=== PATIENT | male | born 1975 | race Caucasian/White ===

== ENCOUNTER → 2020-12-18 14:57 | Outpatient (CLI) | payer BC, SELFPAY ==
--- NOTE | 2020-12-18 15:02 | DI.RAD.S_ITS ---
PROCEDURE: XR KNEE RT 3V INDICATIONS: right knee pain TECHNIQUE: 3 views of the knee were acquired. COMPARISON: None. FINDINGS: Bones: No fractures or dislocations. No suspicious bony lesions. Mild osteoarthritic changes. Soft tissues: No joint effusion. No suspicious soft tissue calcifications. IMPRESSION: Mild osteoarthritis. Dictated by: Vik Lantigua M.D. on 12/18/2020 at 15:50 Approved by: Vik Lantigua M.D. on 12/18/2020 at 15:53
[2020-12-18 17:30] LABS: HEMOLYSIS < 15 (0-50)
[2020-12-18 17:31] LABS: Alanine Aminotransferase 90 IU/L (<50); Albumin 4.8 g/dL (3.5-5.0); Albumin Globulin Ratio 1.6 (1.0-2.8); Alkaline Phosphatase 74 U/L (38-126); Aspartate Aminotransferase 50 IU/L (17-59); BUN Creatinine Ratio 19.8 (6-22); Bilirubin Total 2.5 mg/dL (0.2-1.3); Blood Urea Nitrogen 18 mg/dL (9-20); Calcium 10.1 mg/dL (8.4-10.2); Carbon Dioxide 27 mmol/L (22-32); Chloride 102 mmol/L (98-107); Estimated Glomerular Filt Rate > 60.0 mL/min (>60); Glucose 100 mg/dL (70-100); Sodium 138 mmol/L (137-145); Total Protein 7.8 g/dL (6.3-8.2)
== END ==
PROVIDERS: PCP Family Medicine; Referring Provider Family Medicine; Visit Provider Family Medicine
DX: I10 Essential (primary) hypertension (principal); M25.561 Pain in right knee
CPT/HCPCS: 36415; 73562; 80053

== ENCOUNTER → 2021-01-30 07:54 | Outpatient (CLI) | payer BC, SELFPAY ==
[2021-01-30 08:33] LABS: Add Manual Diff / Slide Review NO; Basophils Absolute Auto 100 /uL (0-100); Eosinophils Absolute Auto 200 /uL (0-450); Eosinophils Percent Auto 4.1 % (2-4); Hematocrit 43.1 % (41-53); Hemoglobin 14.8 g/dL (13.5-17.5); Lymphocytes Absolute Auto 1500 /uL (1100-4500); Lymphocytes Percent Auto 38.7 % (25-40); Mean Corpuscular HGB Conc 34.4 % (30-36); Mean Corpuscular Hemoglobin 30.2 PG (26-34); Mean Corpuscular Volume 87.8 fL (80-100); Monocytes Absolute Auto 400 /uL (0-900); Monocytes Percent Auto 9.1 % (3-14); Neutrophils Absolute Auto 1800 /uL (1500-7000); Neutrophils Percent Auto 46.1 % (50-75); Platelet Count 261 X10^3/uL (150-400); Red Blood Cell Count 4.91 X10^6/uL (4.5-5.9); Red Cell Distribution Width 12.4 % (11.6-14.8); White Blood Cell Count 3.9 X10^3/uL (4.5-11.0)
[2021-01-30 09:03] LABS: Alanine Aminotransferase 34 IU/L (<50); Albumin 4.1 g/dL (3.5-5.0); Albumin Globulin Ratio 1.6 (1.0-2.8); Alkaline Phosphatase 75 U/L (38-126); Aspartate Aminotransferase 29 IU/L (17-59); BUN Creatinine Ratio 15.7 (6-22); Bilirubin Total 1.6 mg/dL (0.2-1.3); Blood Urea Nitrogen 14 mg/dL (9-20); Calcium 9.8 mg/dL (8.4-10.2); Carbon Dioxide 29 mmol/L (22-32); Chloride 103 mmol/L (98-107); Cholesterol 190 mg/dL (140-199); Estimated Glomerular Filt Rate > 60.0 mL/min (>60); Globulin 2.5 g/dL (1.7-4.1); Glucose 102 mg/dL (70-100); HDL Cholesterol 53 mg/dL (40-60); HEMOLYSIS < 15 (0-50); LDL Cholesterol Calculated 125 mg/dL (<100); Potassium 4.5 mmol/L (3.4-5.1); Sodium 139 mmol/L (137-145); Total Protein 6.6 g/dL (6.3-8.2); Triglycerides 59 mg/dL (35-150)
[2021-01-30 09:36] LABS: Thyroid Stimulating Hormone 2.22 uIU/mL (0.47-4.68)
== END ==
PROVIDERS: Family Provider Family Medicine; PCP Family Medicine; Referring Provider Family Medicine; Visit Provider Family Medicine
DX: R17 Unspecified jaundice (principal); I10 Essential (primary) hypertension; R79.89 Other specified abnormal findings of blood chemistry; E03.9 Hypothyroidism, unspecified
CPT/HCPCS: 36415; 80053; 80061; 84443; 85025

== ENCOUNTER 2021-02-11 15:15 | Outpatient (RCR) | payer BC, SELFPAY ==
--- NOTE | 2021-01-17 16:53 | PT.OIE ---
Current Diagnoses Other chronic pain (01/17/21) Pain in right knee (01/17/21) Past Medical History (Last Updated 01/14/21 @ 13:00 by Perry Aranda DO) Chicken pox (~1983) Elevated bilirubin Hypertension (~2012) Right knee pain Wears contact lenses Past Surgical History (Last Updated 12/23/20 @ 21:09 by Rebecca Mix) Anesthesia S/P arthroscopic surgery of left knee (~1990) Visit Care Team Role Provider Type Perry Aranda DO Attending Provider Physician Family Provider Primary Care Provider Referring Provider Specialty: Family Practice Address: [address] [place] [address] Email: [email or web address] Physical Therapy Initial Evaluation PT-OP-A Visit Information Start: 01/17/21 16:24 Freq: Status: Active Protocol: Document 01/17/21 16:25 HH (Rec: 01/17/21 16:53 [email or web address]) Out-Patient Physical Therapy Visit Information Visit Information Visit Type Initial Evaluation Visit Start Time 13:00 Visit Stop Time 13:45 Total Visit Minutes 45 Visit Number 1/60 Number of MATERIALS RESEARCH ENGINEER Visits 0 Evaluation Information Evaluation Date 01/17/21 PT-OP-B Current Condition Start: 01/17/21 16:24 Freq: Status: Active Protocol: Document 01/17/21 16:25 HH (Rec: 01/17/21 16:53 [email or web address]) Current Condition History of Current Condition Onset Date 8 months ago Current Complaints R anterior medial knee pain, difficulty in running History of Current Condition Rich is a 45yo active male here for his R knee pain. His pain locates at anterior-medially at R knee and it started around 8 months ago during running with no known injury. Stair climbing and going down hill tend to get worse and he took a few weeks off from running and it did get better. However, this cycle happened 3 different times since then and he is able to jog on treadmill but not concrete surface. He is still doing his weightlifting at home 3x/week (deadlift and upper body workout). Pt used to run 3-5 miles 3x/ week and would like to get back to it. Prior Treatments and Tests x-ray R knee 12/18/20 IMPRESSION: Mild osteoarthritis. Treatment Goals Patient/Caregiver Goals 1. to be able to run 3-5 miles 3x/week without knee pain PT-OP-C Subjective Start: 01/17/21 16:24 Freq: Status: Active Protocol: Document 01/17/21 16:25 HH (Rec: 01/17/21 16:53 [email or web address]) Patient Questionnaires Lower Extremity Functional Scale LEFS Score 65 LEFS Impairment 1 to 19% Impaired (Score 63-79 ) OP-PT Pain Assessment Location R knee Pain Location Details anteriormedial compartment Intensity 6 Scale Used Numeric (0 - 10) Description Aching Frequency Frequent Pain Aggravating Factors Activity,Exercise,Stair Climbing Other Pain Aggravating Factors running Pain Alleviating Factors Inactivity PT-OP-D Balance Start: 01/17/21 16:24 Freq: Status: Active Protocol: Document 01/17/21 16:25 HH (Rec: 01/17/21 16:53 [email or web address]) Balance Tests Single Limb Standing Single Limb- Right >60 significant poor lateral stability, UE up Single Limb- Left >60 PT-OP-E Functional Tests Start: 01/17/21 16:24 Freq: Status: Active Protocol: Document 01/17/21 16:25 HH (Rec: 01/17/21 16:53 [email or web address]) Functional Tests Star Excursion Balance Test Score Y test on LLE= 21;25;34 on RLE = 23;19:29 Single Leg Squat Test Comment RLE= from 24inch table, LLE from 22 inch table PT-OP-F Manual Assessment Start: 01/17/21 16:24 Freq: Status: Active Protocol: Document 01/17/21 16:25 HH (Rec: 01/17/21 16:53 [email or web address]) Manual Assessments Soft Tissue Assessment Soft Tissue Mobility Assessment hypertonicity at R piriformis and gluteal eliana PT-OP-G Mobility & Gait Start: 01/17/21 16:24 Freq: Status: Active Protocol: Document 01/17/21 16:25 HH (Rec: 01/17/21 16:53 [email or web address]) OP Gait Assessment Comments Gait Comments WFL PT-OP-K Range of Motion Start: 01/17/21 16:24 Freq: Status: Active Protocol: Document 01/17/21 16:25 HH (Rec: 01/17/21 16:53 [email or web address]) Hip Goniometric Range of Motion Hip Right Active Testing Position Prone Internal Rotation 49 External Rotation 36 Left Active Testing Position Prone Internal Rotation 40 External Rotation 45 Hip ROM Limitations Hip ROM Limitations Soft Tissue Tightness Knee Goniometric Range of Motion Knee Right Knee ROM WFL Yes Flexion Active (degrees) 140 Extension Active (degrees) 0 Left Knee ROM WFL Yes Flexion Active (degrees) 140 Extension Active (degrees) 0 PT-OP-L Special Tests Start: 01/17/21 16:24 Freq: Status: Active Protocol: Document 01/17/21 16:25 HH (Rec: 01/17/21 16:53 [email or web address]) Special Tests Knee Special Tests Varus- 0 Degrees Test Results -ve B Valgus- 25 Degrees Test Results -ve B Varus- 25 Degrees Test Results -ve B Valgus- 0 Degrees Test Results -ve B Anterior Draw Test Results -ve B Apley's Compression Test Results -ve B Apprehension Test Test Results +ve R Comments slight discomfort with lateral glide of patella Momo's Sign Test Results +VE R Toyin Test Test Results -ve PT-OP-M Strength Start: 01/17/21 16:24 Freq: Status: Active Protocol: Document 01/17/21 16:25 HH (Rec: 01/17/21 16:53 [email or web address]) Hip Strength Hip Manual Muscle Testing Right Flexion (L2) 4 Good Extension (S1) 4+ Good+ Abduction 4 Good External Rotation 4 Good Internal Rotation 4+ Good+ Left Flexion (L2) 5 Normal Extension (S1) 5 Normal Abduction 5 Normal Adduction 5 Normal External Rotation 4+ Good+ Internal Rotation 4+ Good+ Knee Strength Knee Manual Muscle Testing Right Flexion (S2) 5 Normal Extension (L3) 5 Normal Left Flexion (S2) 5 Normal Extension (L3) 5 Normal PT-OP-Q Treatments Start: 01/17/21 16:24 Freq: Status: Active Protocol: Document 01/17/21 16:25 (Rec: 01/17/21 16:53 [email or web address]) Therapeutic Exercises Supine Exercises figure 4 stretch Side right Reps/Minutes 10 sec hold x5 Comments for HEP piriformis stretch Side right Reps/Minutes 10 sec hold x5 Comments for HEP PT-OP-T Assessment and Plan Start: 01/17/21 16:24 Freq: Status: Active Protocol: Document 01/17/21 16:25 (Rec: 01/17/21 16:53 [email or web address]) Physical Therapy Assessment Rehab Potential Rehabilitation Potential Excellent Evaluation Complexity Number of Personal Factors/Comorbidities 0 Number of Body Systems Impaired 1-2 Clinical Presentation at Evaluation Stable Impairments Impairments Activity Tolerance,Balance, Functional Activities, Functional Mobility,Gait,Pain, Posture,ROM,Soft Tissue Mobility,Strength Goals single leg strength Impairment limited R single leg strength Short Term Goal (STG) pt will be able to stand on RLE without use of UEs to balance for 60 seconds STG Duration 4 weeks Retirement Goal (LTG) pt will show improve single leg balance and strength to be able to complete 5 single leg squat from a 22 table, which allows him to have good eccentric control during stance phase while running LTG Duration 8 weeks hip ROM Impairment limited R hip ER Short Term Goal (STG) pt will show improved R hip ER by 10 degrees to prevent knee valgus during running and single leg squat STG Duration 6 weeks running Impairment pt is unable to run on concrete at this point Short Term Goal (STG) pt will be able to run on concrete road 1-2 miles 3x per week without increase in discomfort STG Duration 4 weeks Bi Solutions Architect Goal (LTG) pt will be able to run on concrete road 3-5 miles 3x per week without increase in discomfort LTG Duration 8 weeks Assessment Summary Assessment Rich is an active 45yo male here for his R knee pain during running. Upon assessment, pt presents with PFPS at anterior medial part of R knee. Although there's mild OA showed on X-ray, pt does not have stiffness/ ROM limitation. However, pt does have limited R hip ER and poor R single leg balance and strength which affects his running mechanics during stance phase. pt tends to have excessive R knee valgus which possibly places mechanical stress at medial knee joint. Pt will benefit from skilled therapy to improve his R hip ER and R single leg stability and strength in order for him to have better landing control eccentrically during runnning . Physical Therapy Plan Frequency and Duration Frequency of Treatment 1x/Week Duration of Treatment 8 weeks Plan of Care Start Date 01/17/21 Plan of Care End Date 03/18/21 Therapeutic Interventions Therapeutic Interventions Aquatic Therapy,Balance Training,Gait Training,Home Exercise Program,Joint Mobilizations,Manual Therapy, Neuromuscular Re-education, Patient/Caregiver Education, Self-Care/Home Management,Soft Tissue Mobilization,Taping, Therapeutic Activities, Therapeutic Exercises Modalities Biofeedback,Cold Pack/Ice Massage,Electric Stimulation, Hot Packs,Infrared Therapy, Iontophoresis,Ultrasound Next Visit Focus/Plan Next Note Type Treatment Note Next Visit Plan running analysis R hip ER hip stabilizer strnegthening hip abductors strengthening SL balance leg press
--- NOTE | 2021-01-17 16:53 | PT.OPPOC ---
Physical, Occupational & Speech Therapy At [facility] Current Diagnoses Other chronic pain (01/17/21) Pain in right knee (01/17/21) Visit Care Team Role Provider Type Perry Aranda DO Attending Provider Physician Family Provider Primary Care Provider Referring Provider Specialty: Family Practice Address: [address] [place] [address], [facility] Email: [email or web address] Plan Of Care PT-OP-T Assessment and Plan Start: 01/17/21 16:24 Freq: Status: Active Protocol: Document 01/17/21 16:25 HH (Rec: 01/17/21 16:53 HH [email or web address]) Physical Therapy Assessment Rehab Potential Rehabilitation Potential Excellent Evaluation Complexity Number of Personal Factors/Comorbidities 0 Number of Body Systems Impaired 1-2 Clinical Presentation at Evaluation Stable Impairments Impairments Activity Tolerance,Balance, Functional Activities, Functional Mobility,Gait,Pain, Posture,ROM,Soft Tissue Mobility,Strength Goals single leg strength Impairment limited R single leg strength Short Term Goal (STG) pt will be able to stand on RLE without use of UEs to balance for 60 seconds STG Duration 4 weeks Wide Load Escort Goal (LTG) pt will show improve single leg balance and strength to be able to complete 5 single leg squat from a 22 table, which allows him to have good eccentric control during stance phase while running LTG Duration 8 weeks hip ROM Impairment limited R hip ER Short Term Goal (STG) pt will show improved R hip ER by 10 degrees to prevent knee valgus during running and single leg squat STG Duration 6 weeks running Impairment pt is unable to run on concrete at this point Short Term Goal (STG) pt will be able to run on concrete road 1-2 miles 3x per week without increase in discomfort STG Duration 4 weeks Wide Load Escort Goal (LTG) pt will be able to run on concrete road 3-5 miles 3x per week without increase in discomfort LTG Duration 8 weeks Assessment Summary Assessment Rich is an active 45yo male here for his R knee pain during running. Upon assessment, pt presents with PFPS at anterior medial part of R knee. Although there's mild OA showed on X-ray, pt does not have stiffness/ ROM limitation. However, pt does have limited R hip ER and poor R single leg balance and strength which affects his running mechanics during stance phase. pt tends to have excessive R knee valgus which possibly places mechanical stress at medial knee joint. Pt will benefit from skilled therapy to improve his R hip ER and R single leg stability and strength in order for him to have better landing control eccentrically during runnning . Physical Therapy Plan Frequency and Duration Frequency of Treatment 1x/Week Duration of Treatment 8 weeks Plan of Care Start Date 01/17/21 Plan of Care End Date 03/18/21 Therapeutic Interventions Therapeutic Interventions Aquatic Therapy,Balance Training,Gait Training,Home Exercise Program,Joint Mobilizations,Manual Therapy, Neuromuscular Re-education, Patient/Caregiver Education, Self-Care/Home Management,Soft Tissue Mobilization,Taping, Therapeutic Activities, Therapeutic Exercises Modalities Biofeedback,Cold Pack/Ice Massage,Electric Stimulation, Hot Packs,Infrared Therapy, Iontophoresis,Ultrasound Next Visit Focus/Plan Next Note Type Treatment Note Next Visit Plan running analysis R hip ER hip stabilizer strnegthening hip abductors strengthening SL balance leg press Plan of Care Dates Plan of Care Start Date 01/17/21 Plan of Care End Date 03/18/21 Electronically Signed by: Kendrick Mosqueda PT 01/17/21 [id number] Please Sign and Return: I have reviewed this Plan of Care and certify that the skilled therapy services above are required to meet the patient?s needs. Physician Signature Date Printed Name and Credentials Clinical Instructor Signature Printed Name and Credentials
--- NOTE | 2021-01-24 16:33 | PT.OTN ---
Current Diagnoses Other chronic pain (01/24/21) Pain in right knee (01/24/21) Physical Therapy Treatment Note PT-OP-A Visit Information Start: 01/17/21 16:24 Freq: Status: Active Protocol: Document 01/24/21 14:28 HH (Rec: 01/24/21 16:33 [id number]) Out-Patient Physical Therapy Visit Information Visit Information Visit Type Treatment Note Visit Start Time 14:30 Visit Stop Time 15:15 Total Visit Minutes 45 Visit Number 2/60 Number of CEMETERY WORKER Visits 0 PT-OP-B Current Condition Start: 01/17/21 16:24 Freq: Status: Active Protocol: Document 01/17/21 16:25 HH (Rec: 01/17/21 16:53 HH [email or web address]) Current Condition History of Current Condition Onset Date 8 months ago Current Complaints R anterior medial knee pain, difficulty in running History of Current Condition Rich is a 45yo active male here for his R knee pain. His pain locates at anterior-medially at R knee and it started around 8 months ago during running with no known injury. Stair climbing and going down hill tend to get worse and he took a few weeks off from running and it did get better. However, this cycle happened 3 different times since then and he is able to jog on treadmill but not concrete surface. He is still doing his weightlifting at home 3x/week (deadlift and upper body workout). Pt used to run 3-5 miles 3x/ week and would like to get back to it. Prior Treatments and Tests x-ray R knee 12/18/20 IMPRESSION: Mild osteoarthritis. Treatment Goals Patient/Caregiver Goals 1. to be able to run 3-5 miles 3x/week without knee pain PT-OP-C Subjective Start: 01/17/21 16:24 Freq: Status: Active Protocol: Document 01/24/21 14:28 HH (Rec: 01/24/21 16:33 [id number]) OP-PT Subjective Patient Comments Patient Comments Raina been doing my stretches PT-OP-D Balance Start: 01/17/21 16:24 Freq: Status: Active Protocol: Document 01/17/21 16:25 HH (Rec: 01/17/21 16:53 HH [email or web address]) Balance Tests Single Limb Standing Single Limb- Right >60 significant poor lateral stability, UE up Single Limb- Left >60 PT-OP-E Functional Tests Start: 01/17/21 16:24 Freq: Status: Active Protocol: Document 01/17/21 16:25 HH (Rec: 01/17/21 16:53 [email or web address]) Functional Tests Star Excursion Balance Test Score Y test on LLE= 21;25;34 on RLE = 23;19:29 Single Leg Squat Test Comment RLE= from 24inch table, LLE from 22 inch table PT-OP-F Manual Assessment Start: 01/17/21 16:24 Freq: Status: Active Protocol: Document 01/17/21 16:25 HH (Rec: 01/17/21 16:53 [email or web address]) Manual Assessments Soft Tissue Assessment Soft Tissue Mobility Assessment hypertonicity at R piriformis and gluteal eliana PT-OP-G Mobility & Gait Start: 01/17/21 16:24 Freq: Status: Active Protocol: Document 01/17/21 16:25 HH (Rec: 01/17/21 16:53 [email or web address]) OP Gait Assessment Comments Gait Comments WFL PT-OP-K Range of Motion Start: 01/17/21 16:24 Freq: Status: Active Protocol: Document 01/17/21 16:25 HH (Rec: 01/17/21 16:53 [email or web address]) Hip Goniometric Range of Motion Hip Right Active Testing Position Prone Internal Rotation 49 External Rotation 36 Left Active Testing Position Prone Internal Rotation 40 External Rotation 45 Hip ROM Limitations Hip ROM Limitations Soft Tissue Tightness Knee Goniometric Range of Motion Knee Right Knee ROM WFL Yes Flexion Active (degrees) 140 Extension Active (degrees) 0 Left Knee ROM WFL Yes Flexion Active (degrees) 140 Extension Active (degrees) 0 PT-OP-L Special Tests Start: 01/17/21 16:24 Freq: Status: Active Protocol: Document 01/17/21 16:25 HH (Rec: 01/17/21 16:53 [email or web address]) Special Tests Knee Special Tests Varus- 0 Degrees Test Results -ve B Valgus- 25 Degrees Test Results -ve B Varus- 25 Degrees Test Results -ve B Valgus- 0 Degrees Test Results -ve B Anterior Draw Test Results -ve B Apley's Compression Test Results -ve B Apprehension Test Test Results +ve R Comments slight discomfort with lateral glide of patella Momo's Sign Test Results +VE R Toyin Test Test Results -ve PT-OP-M Strength Start: 01/17/21 16:24 Freq: Status: Active Protocol: Document 01/17/21 16:25 HH (Rec: 01/17/21 16:53 HH [email or web address]) Hip Strength Hip Manual Muscle Testing Right Flexion (L2) 4 Good Extension (S1) 4+ Good+ Abduction 4 Good External Rotation 4 Good Internal Rotation 4+ Good+ Left Flexion (L2) 5 Normal Extension (S1) 5 Normal Abduction 5 Normal Adduction 5 Normal External Rotation 4+ Good+ Internal Rotation 4+ Good+ Knee Strength Knee Manual Muscle Testing Right Flexion (S2) 5 Normal Extension (L3) 5 Normal Left Flexion (S2) 5 Normal Extension (L3) 5 Normal PT-OP-Q Treatments Start: 01/17/21 16:24 Freq: Status: Active Protocol: Document 01/24/21 14:28 HH (Rec: 01/24/21 16:33 [id number]) Cardio Equipment Treadmill Duration (Minutes) 5 Speed 5.0 Other pre session, slight discomfort at knee, post session no discomfort noted. Therapeutic Exercises Supine Exercises bridging Side bilateral Equipment Used red band on knees Reps/Minutes 10 x3 Comments cues on PPT figure 4 stretch Side right Reps/Minutes 10 sec hold x5 Comments for HEP piriformis stretch Side right Reps/Minutes 10 sec hold x5 Comments for HEP Sidelying Exercises clamshell Side bilateral Reps/Minutes 8 x2 Comments for HEP Standing Exercises SLS Standing Exercise Name blue foam Side bilateral Reps/Minutes 20 x 6 monster walk Equipment Used red band Reps/Minutes 20 ft x6 Manual Therapy Treatment Soft Tissue Mobilization hip adductors Body Location R Mobilization Type Myofascial Release,Sustained Pressure,Trigger Point Release Intensity/Depth Moderate Body Position Supine Comments hypertonicity noted. piriformis Body Location R Mobilization Type Myofascial Release,Sustained Pressure,Trigger Point Release Intensity/Depth Moderate Body Position Prone PT-OP-T Assessment and Plan Start: 01/17/21 16:24 Freq: Status: Active Protocol: Document 01/24/21 14:28 HH (Rec: 01/24/21 16:33 [id number]) Physical Therapy Assessment Goals single leg strength Impairment limited R single leg strength Short Term Goal (STG) pt will be able to stand on RLE without use of UEs to balance for 60 seconds STG Duration 4 weeks Long-Term Goal (LTG) pt will show improve single leg balance and strength to be able to complete 5 single leg squat from a 22 table, which allows him to have good eccentric control during stance phase while running LTG Duration 8 weeks hip ROM Impairment limited R hip ER Short Term Goal (STG) pt will show improved R hip ER by 10 degrees to prevent knee valgus during running and single leg squat STG Duration 6 weeks running Impairment pt is unable to run on concrete at this point Short Term Goal (STG) pt will be able to run on concrete road 1-2 miles 3x per week without increase in discomfort STG Duration 4 weeks Long-Term Goal (LTG) pt will be able to run on concrete road 3-5 miles 3x per week without increase in discomfort LTG Duration 8 weeks Assessment Summary Assessment Running analysis completed today and pt does not show any noticeable deficits. However, pt did report slight anterior medial knee pain while running but no symptoms after manual therapy, hip stabilization ex and single leg balance activities. Will continue monitor his progress. Physical Therapy Plan Frequency and Duration Frequency of Treatment 1x/Week Duration of Treatment 8 weeks Plan of Care Start Date 01/17/21 Plan of Care End Date 03/18/21 Therapeutic Interventions Therapeutic Interventions Aquatic Therapy,Balance Training,Gait Training,Home Exercise Program,Joint Mobilizations,Manual Therapy, Neuromuscular Re-education, Patient/Caregiver Education, Self-Care/Home Management,Soft Tissue Mobilization,Taping, Therapeutic Activities, Therapeutic Exercises Modalities Biofeedback,Cold Pack/Ice Massage,Electric Stimulation, Hot Packs,Infrared Therapy, Iontophoresis,Ultrasound Next Visit Focus/Plan Next Note Type Treatment Note Next Visit Plan running analysis R hip ER hip stabilizer strnegthening hip abductors strengthening SL balance leg press
--- NOTE | 2021-01-28 15:17 | PT.OTN ---
Current Diagnoses Other chronic pain (01/28/21) Pain in right knee (01/28/21) Physical Therapy Treatment Note PT-OP-A Visit Information Start: 01/17/21 16:24 Freq: Status: Active Protocol: Document 01/28/21 14:32 HH (Rec: 01/28/21 15:17 [id number]) Out-Patient Physical Therapy Visit Information Visit Information Visit Type Treatment Note Visit Start Time 14:33 Visit Stop Time 15:15 Total Visit Minutes 43 Visit Number 3/60 Number of MANAGER HEMATOLOGY Visits 0 PT-OP-B Current Condition Start: 01/17/21 16:24 Freq: Status: Active Protocol: Document 01/17/21 16:25 HH (Rec: 01/17/21 16:53 HH [email or web address]) Current Condition History of Current Condition Onset Date 8 months ago Current Complaints R anterior medial knee pain, difficulty in running History of Current Condition Rich is a 45yo active male here for his R knee pain. His pain locates at anterior-medially at R knee and it started around 8 months ago during running with no known injury. Stair climbing and going down hill tend to get worse and he took a few weeks off from running and it did get better. However, this cycle happened 3 different times since then and he is able to jog on treadmill but not concrete surface. He is still doing his weightlifting at home 3x/week (deadlift and upper body workout). Pt used to run 3-5 miles 3x/ week and would like to get back to it. Prior Treatments and Tests x-ray R knee 12/18/20 IMPRESSION: Mild osteoarthritis. Treatment Goals Patient/Caregiver Goals 1. to be able to run 3-5 miles 3x/week without knee pain PT-OP-C Subjective Start: 01/17/21 16:24 Freq: Status: Active Protocol: Document 01/28/21 14:32 HH (Rec: 01/28/21 15:17 HH [id number]) OP-PT Subjective Patient Comments Patient Comments My hip adductors got sore from last time. But my knee is doing pretty good so far. Patient Reported Progress Improving PT-OP-D Balance Start: 01/17/21 16:24 Freq: Status: Active Protocol: Document 01/17/21 16:25 HH (Rec: 01/17/21 16:53 HH [email or web address]) Balance Tests Single Limb Standing Single Limb- Right >60 significant poor lateral stability, UE up Single Limb- Left >60 PT-OP-E Functional Tests Start: 01/17/21 16:24 Freq: Status: Active Protocol: Document 01/17/21 16:25 HH (Rec: 01/17/21 16:53 [email or web address]) Functional Tests Star Excursion Balance Test Score Y test on LLE= 21;25;34 on RLE = 23;19:29 Single Leg Squat Test Comment RLE= from 24inch table, LLE from 22 inch table PT-OP-F Manual Assessment Start: 01/17/21 16:24 Freq: Status: Active Protocol: Document 01/17/21 16:25 HH (Rec: 01/17/21 16:53 [email or web address]) Manual Assessments Soft Tissue Assessment Soft Tissue Mobility Assessment hypertonicity at R piriformis and gluteal eliana PT-OP-G Mobility & Gait Start: 01/17/21 16:24 Freq: Status: Active Protocol: Document 01/17/21 16:25 HH (Rec: 01/17/21 16:53 [email or web address]) OP Gait Assessment Comments Gait Comments WFL PT-OP-K Range of Motion Start: 01/17/21 16:24 Freq: Status: Active Protocol: Document 01/17/21 16:25 HH (Rec: 01/17/21 16:53 [email or web address]) Hip Goniometric Range of Motion Hip Right Active Testing Position Prone Internal Rotation 49 External Rotation 36 Left Active Testing Position Prone Internal Rotation 40 External Rotation 45 Hip ROM Limitations Hip ROM Limitations Soft Tissue Tightness Knee Goniometric Range of Motion Knee Right Knee ROM WFL Yes Flexion Active (degrees) 140 Extension Active (degrees) 0 Left Knee ROM WFL Yes Flexion Active (degrees) 140 Extension Active (degrees) 0 PT-OP-L Special Tests Start: 01/17/21 16:24 Freq: Status: Active Protocol: Document 01/17/21 16:25 HH (Rec: 01/17/21 16:53 [email or web address]) Special Tests Knee Special Tests Varus- 0 Degrees Test Results -ve B Valgus- 25 Degrees Test Results -ve B Varus- 25 Degrees Test Results -ve B Valgus- 0 Degrees Test Results -ve B Anterior Draw Test Results -ve B Apley's Compression Test Results -ve B Apprehension Test Test Results +ve R Comments slight discomfort with lateral glide of patella Momo's Sign Test Results +VE R Toyin Test Test Results -ve PT-OP-M Strength Start: 01/17/21 16:24 Freq: Status: Active Protocol: Document 01/17/21 16:25 HH (Rec: 01/17/21 16:53 HH [email or web address]) Hip Strength Hip Manual Muscle Testing Right Flexion (L2) 4 Good Extension (S1) 4+ Good+ Abduction 4 Good External Rotation 4 Good Internal Rotation 4+ Good+ Left Flexion (L2) 5 Normal Extension (S1) 5 Normal Abduction 5 Normal Adduction 5 Normal External Rotation 4+ Good+ Internal Rotation 4+ Good+ Knee Strength Knee Manual Muscle Testing Right Flexion (S2) 5 Normal Extension (L3) 5 Normal Left Flexion (S2) 5 Normal Extension (L3) 5 Normal PT-OP-Q Treatments Start: 01/17/21 16:24 Freq: Status: Active Protocol: Document 01/28/21 14:32 HH (Rec: 01/28/21 15:17 [id number]) Cardio Equipment Bicycle (Upright) Duration (Minutes) 8 Resistance 5 Treadmill Duration (Minutes) 5 Speed 5.0 Other no dsicomfort noted Therapeutic Exercises Standing Exercises lunges Standing Exercise Name in place Reps/Minutes 8 x 2 runner squat Side bilateral Reps/Minutes 5 mins Comments difficulty standing on RLE but improved after 3 way toe tap Standing Exercise Name cone tap, fwd, lateral, bwk Side bilateral Reps/Minutes 5 mins SLS Standing Exercise Name blue foam, then black foam Side bilateral Reps/Minutes 20 x 6 monster walk Equipment Used red band Reps/Minutes 20 ft x6 Manual Therapy Treatment Soft Tissue Mobilization hip adductors Body Location R Mobilization Type Myofascial Release,Sustained Pressure,Trigger Point Release Intensity/Depth Moderate Body Position Supine Comments hypertonicity noted. piriformis Body Location R Mobilization Type Myofascial Release,Sustained Pressure,Trigger Point Release Intensity/Depth Moderate Body Position Prone PT-OP-T Assessment and Plan Start: 01/17/21 16:24 Freq: Status: Active Protocol: Document 01/28/21 14:32 (Rec: 01/28/21 15:17 [id number]) Physical Therapy Assessment Goals single leg strength Impairment limited R single leg strength Short Term Goal (STG) pt will be able to stand on RLE without use of UEs to balance for 60 seconds STG Duration 4 weeks Drink Mixer Goal (LTG) pt will show improve single leg balance and strength to be able to complete 5 single leg squat from a 22 table, which allows him to have good eccentric control during stance phase while running LTG Duration 8 weeks hip ROM Impairment limited R hip ER Short Term Goal (STG) pt will show improved R hip ER by 10 degrees to prevent knee valgus during running and single leg squat STG Duration 6 weeks running Impairment pt is unable to run on concrete at this point Short Term Goal (STG) pt will be able to run on concrete road 1-2 miles 3x per week without increase in discomfort STG Duration 4 weeks Senior Living Goal (LTG) pt will be able to run on concrete road 3-5 miles 3x per week without increase in discomfort LTG Duration 8 weeks Assessment Summary Assessment Pt shows improved SL balance and strength. This session focused primarily on strengthening ex on single leg stance. No discomfort noted. Will cont progress his ex as isaac. Physical Therapy Plan Frequency and Duration Frequency of Treatment 1x/Week Duration of Treatment 8 weeks Plan of Care Start Date 01/17/21 Plan of Care End Date 03/18/21 Therapeutic Interventions Therapeutic Interventions Aquatic Therapy,Balance Training,Gait Training,Home Exercise Program,Joint Mobilizations,Manual Therapy, Neuromuscular Re-education, Patient/Caregiver Education, Self-Care/Home Management,Soft Tissue Mobilization,Taping, Therapeutic Activities, Therapeutic Exercises Modalities Biofeedback,Cold Pack/Ice Massage,Electric Stimulation, Hot Packs,Infrared Therapy, Iontophoresis,Ultrasound Next Visit Focus/Plan Next Note Type Treatment Note Next Visit Plan running analysis R hip ER hip stabilizer strnegthening hip abductors strengthening SL balance leg press
--- NOTE | 2021-01-31 15:18 | PT.OTN ---
Current Diagnoses Other chronic pain (01/31/21) Pain in right knee (01/31/21) Physical Therapy Treatment Note PT-OP-A Visit Information Start: 01/17/21 16:24 Freq: Status: Active Protocol: Document 01/31/21 14:27 HH (Rec: 01/31/21 15:17 [id number]) Out-Patient Physical Therapy Visit Information Visit Information Visit Type Treatment Note Visit Start Time 14:33 Visit Stop Time 15:18 Total Visit Minutes 45 Visit Number 4/60 Number of CREDIT COLLECTIONS ANALYST Visits 0 PT-OP-B Current Condition Start: 01/17/21 16:24 Freq: Status: Active Protocol: Document 01/17/21 16:25 HH (Rec: 01/17/21 16:53 HH [email or web address]) Current Condition History of Current Condition Onset Date 8 months ago Current Complaints R anterior medial knee pain, difficulty in running History of Current Condition Rich is a 45yo active male here for his R knee pain. His pain locates at anterior-medially at R knee and it started around 8 months ago during running with no known injury. Stair climbing and going down hill tend to get worse and he took a few weeks off from running and it did get better. However, this cycle happened 3 different times since then and he is able to jog on treadmill but not concrete surface. He is still doing his weightlifting at home 3x/week (deadlift and upper body workout). Pt used to run 3-5 miles 3x/ week and would like to get back to it. Prior Treatments and Tests x-ray R knee 12/18/20 IMPRESSION: Mild osteoarthritis. Treatment Goals Patient/Caregiver Goals 1. to be able to run 3-5 miles 3x/week without knee pain PT-OP-C Subjective Start: 01/17/21 16:24 Freq: Status: Active Protocol: Document 01/31/21 14:27 HH (Rec: 01/31/21 15:17 [id number]) OP-PT Subjective Patient Comments Patient Comments My knee got a little sore from last workout session here but it went away the next day . I feel pretty good so far Patient Reported Progress Improving PT-OP-D Balance Start: 01/17/21 16:24 Freq: Status: Active Protocol: Document 01/17/21 16:25 HH (Rec: 01/17/21 16:53 HH [email or web address]) Balance Tests Single Limb Standing Single Limb- Right >60 significant poor lateral stability, UE up Single Limb- Left >60 PT-OP-E Functional Tests Start: 01/17/21 16:24 Freq: Status: Active Protocol: Document 01/17/21 16:25 HH (Rec: 01/17/21 16:53 [email or web address]) Functional Tests Star Excursion Balance Test Score Y test on LLE= 21;25;34 on RLE = 23;19:29 Single Leg Squat Test Comment RLE= from 24inch table, LLE from 22 inch table PT-OP-F Manual Assessment Start: 01/17/21 16:24 Freq: Status: Active Protocol: Document 01/17/21 16:25 HH (Rec: 01/17/21 16:53 [email or web address]) Manual Assessments Soft Tissue Assessment Soft Tissue Mobility Assessment hypertonicity at R piriformis and gluteal eliana PT-OP-G Mobility & Gait Start: 01/17/21 16:24 Freq: Status: Active Protocol: Document 01/17/21 16:25 HH (Rec: 01/17/21 16:53 [email or web address]) OP Gait Assessment Comments Gait Comments WFL PT-OP-K Range of Motion Start: 01/17/21 16:24 Freq: Status: Active Protocol: Document 01/17/21 16:25 HH (Rec: 01/17/21 16:53 [email or web address]) Hip Goniometric Range of Motion Hip Right Active Testing Position Prone Internal Rotation 49 External Rotation 36 Left Active Testing Position Prone Internal Rotation 40 External Rotation 45 Hip ROM Limitations Hip ROM Limitations Soft Tissue Tightness Knee Goniometric Range of Motion Knee Right Knee ROM WFL Yes Flexion Active (degrees) 140 Extension Active (degrees) 0 Left Knee ROM WFL Yes Flexion Active (degrees) 140 Extension Active (degrees) 0 PT-OP-L Special Tests Start: 01/17/21 16:24 Freq: Status: Active Protocol: Document 01/17/21 16:25 HH (Rec: 01/17/21 16:53 [email or web address]) Special Tests Knee Special Tests Varus- 0 Degrees Test Results -ve B Valgus- 25 Degrees Test Results -ve B Varus- 25 Degrees Test Results -ve B Valgus- 0 Degrees Test Results -ve B Anterior Draw Test Results -ve B Apley's Compression Test Results -ve B Apprehension Test Test Results +ve R Comments slight discomfort with lateral glide of patella Momo's Sign Test Results +VE R Toyin Test Test Results -ve PT-OP-M Strength Start: 01/17/21 16:24 Freq: Status: Active Protocol: Document 01/17/21 16:25 HH (Rec: 01/17/21 16:53 [email or web address]) Hip Strength Hip Manual Muscle Testing Right Flexion (L2) 4 Good Extension (S1) 4+ Good+ Abduction 4 Good External Rotation 4 Good Internal Rotation 4+ Good+ Left Flexion (L2) 5 Normal Extension (S1) 5 Normal Abduction 5 Normal Adduction 5 Normal External Rotation 4+ Good+ Internal Rotation 4+ Good+ Knee Strength Knee Manual Muscle Testing Right Flexion (S2) 5 Normal Extension (L3) 5 Normal Left Flexion (S2) 5 Normal Extension (L3) 5 Normal PT-OP-Q Treatments Start: 01/17/21 16:24 Freq: Status: Active Protocol: Document 01/31/21 14:27 (Rec: 01/31/21 15:17 [id number]) Cardio Equipment Bicycle (Upright) Duration (Minutes) 8 Resistance 5 Treadmill Duration (Minutes) 10 Speed 5.0 Other no dsicomfort noted Gym Equipment Shuttle Recovery SL jump Resistance 50 Shuttle Recovery Platform Stable Reps/Time cues on soft landing SL squat Resistance 50 Shuttle Recovery Platform Stable Reps/Time 12 x 2 Therapeutic Exercises Supine Exercises straight leg raise Supine Exercise Name hip externally rotated Side bilateral Reps/Minutes 10 x2 Standing Exercises SL hop Standing Exercise Name land on blue foam, fwd and lateral Side bilateral Equipment Used blue foam Reps/Minutes 10 x 2 lunges Standing Exercise Name in place Reps/Minutes 8 x 2 runner squat Side bilateral Reps/Minutes 5 mins Comments difficulty standing on RLE but improved after 3 way toe tap Standing Exercise Name cone tap, fwd, lateral, bwk Side bilateral Reps/Minutes 5 mins SLS Standing Exercise Name blue foam, then black foam Side bilateral Reps/Minutes 20 x 6 Comments EC on floor, EO for foam pade monster walk Equipment Used red band Reps/Minutes 20 ft x6 Manual Therapy Treatment Soft Tissue Mobilization hip adductors Body Location R Mobilization Type Myofascial Release,Sustained Pressure,Trigger Point Release Intensity/Depth Moderate Body Position Supine Comments hypertonicity noted. piriformis Body Location R Mobilization Type Myofascial Release,Sustained Pressure,Trigger Point Release Intensity/Depth Moderate Body Position Prone PT-OP-T Assessment and Plan Start: 01/17/21 16:24 Freq: Status: Active Protocol: Document 01/31/21 14:27 HH (Rec: 01/31/21 15:17 HH [id number]) Physical Therapy Assessment Goals single leg strength Impairment limited R single leg strength Short Term Goal (STG) pt will be able to stand on RLE without use of UEs to balance for 60 seconds STG Duration 4 weeks Jail Goal (LTG) pt will show improve single leg balance and strength to be able to complete 5 single leg squat from a 22 table, which allows him to have good eccentric control during stance phase while running LTG Duration 8 weeks hip ROM Impairment limited R hip ER Short Term Goal (STG) pt will show improved R hip ER by 10 degrees to prevent knee valgus during running and single leg squat STG Duration 6 weeks running Impairment pt is unable to run on concrete at this point Short Term Goal (STG) pt will be able to run on concrete road 1-2 miles 3x per week without increase in discomfort STG Duration 4 weeks Stock And Station Agent Goal (LTG) pt will be able to run on concrete road 3-5 miles 3x per week without increase in discomfort LTG Duration 8 weeks Assessment Summary Assessment Tx focused on SL stability and landing techqniues today. Noticed pt has fear avoidance to fully WB during SL hop activity but did improve through repetitions. Pt feels more confident now and recommended him to start light jogging outdoor for graded exposure. Physical Therapy Plan Frequency and Duration Frequency of Treatment 1x/Week Duration of Treatment 8 weeks Plan of Care Start Date 01/17/21 Plan of Care End Date 03/18/21 Therapeutic Interventions Therapeutic Interventions Aquatic Therapy,Balance Training,Gait Training,Home Exercise Program,Joint Mobilizations,Manual Therapy, Neuromuscular Re-education, Patient/Caregiver Education, Self-Care/Home Management,Soft Tissue Mobilization,Taping, Therapeutic Activities, Therapeutic Exercises Modalities Biofeedback,Cold Pack/Ice Massage,Electric Stimulation, Hot Packs,Infrared Therapy, Iontophoresis,Ultrasound Next Visit Focus/Plan Next Note Type Treatment Note Next Visit Plan running analysis R hip ER hip stabilizer strnegthening hip abductors strengthening SL balance leg press
--- NOTE | 2021-02-11 16:02 | PT.OTN ---
Current Diagnoses Other chronic pain (02/11/21) Pain in right knee (02/11/21) Physical Therapy Treatment Note PT-OP-A Visit Information Start: 01/17/21 16:24 Freq: Status: Active Protocol: Document 02/11/21 15:13 HH (Rec: 02/11/21 16:02 [id number]) Out-Patient Physical Therapy Visit Information Visit Information Visit Type Treatment Note Visit Start Time 15:16 Visit Stop Time 16:00 Total Visit Minutes 44 Visit Number 5/60 Number of PALLETISER OPERATOR Visits 0 PT-OP-B Current Condition Start: 01/17/21 16:24 Freq: Status: Active Protocol: Document 01/17/21 16:25 HH (Rec: 01/17/21 16:53 [email or web address]) Current Condition History of Current Condition Onset Date 8 months ago Current Complaints R anterior medial knee pain, difficulty in running History of Current Condition Rich is a 45yo active male here for his R knee pain. His pain locates at anterior-medially at R knee and it started around 8 months ago during running with no known injury. Stair climbing and going down hill tend to get worse and he took a few weeks off from running and it did get better. However, this cycle happened 3 different times since then and he is able to jog on treadmill but not concrete surface. He is still doing his weightlifting at home 3x/week (deadlift and upper body workout). Pt used to run 3-5 miles 3x/ week and would like to get back to it. Prior Treatments and Tests x-ray R knee 12/18/20 IMPRESSION: Mild osteoarthritis. Treatment Goals Patient/Caregiver Goals 1. to be able to run 3-5 miles 3x/week without knee pain PT-OP-C Subjective Start: 01/17/21 16:24 Freq: Status: Active Protocol: Document 02/11/21 15:13 HH (Rec: 02/11/21 16:02 [id number]) OP-PT Subjective Patient Comments Patient Comments Raina been doing good. Raina been doing hiking, light jogging, water rafting. Patient Reported Progress Improving PT-OP-D Balance Start: 01/17/21 16:24 Freq: Status: Active Protocol: Document 01/17/21 16:25 HH (Rec: 01/17/21 16:53 HH [email or web address]) Balance Tests Single Limb Standing Single Limb- Right >60 significant poor lateral stability, UE up Single Limb- Left >60 PT-OP-E Functional Tests Start: 01/17/21 16:24 Freq: Status: Active Protocol: Document 01/17/21 16:25 HH (Rec: 01/17/21 16:53 [email or web address]) Functional Tests Star Excursion Balance Test Score Y test on LLE= 21;25;34 on RLE = 23;19:29 Single Leg Squat Test Comment RLE= from 24inch table, LLE from 22 inch table PT-OP-F Manual Assessment Start: 01/17/21 16:24 Freq: Status: Active Protocol: Document 01/17/21 16:25 HH (Rec: 01/17/21 16:53 [email or web address]) Manual Assessments Soft Tissue Assessment Soft Tissue Mobility Assessment hypertonicity at R piriformis and gluteal eliana PT-OP-G Mobility & Gait Start: 01/17/21 16:24 Freq: Status: Active Protocol: Document 01/17/21 16:25 HH (Rec: 01/17/21 16:53 [email or web address]) OP Gait Assessment Comments Gait Comments WFL PT-OP-K Range of Motion Start: 01/17/21 16:24 Freq: Status: Active Protocol: Document 01/17/21 16:25 HH (Rec: 01/17/21 16:53 [email or web address]) Hip Goniometric Range of Motion Hip Right Active Testing Position Prone Internal Rotation 49 External Rotation 36 Left Active Testing Position Prone Internal Rotation 40 External Rotation 45 Hip ROM Limitations Hip ROM Limitations Soft Tissue Tightness Knee Goniometric Range of Motion Knee Right Knee ROM WFL Yes Flexion Active (degrees) 140 Extension Active (degrees) 0 Left Knee ROM WFL Yes Flexion Active (degrees) 140 Extension Active (degrees) 0 PT-OP-L Special Tests Start: 01/17/21 16:24 Freq: Status: Active Protocol: Document 01/17/21 16:25 HH (Rec: 01/17/21 16:53 [email or web address]) Special Tests Knee Special Tests Varus- 0 Degrees Test Results -ve B Valgus- 25 Degrees Test Results -ve B Varus- 25 Degrees Test Results -ve B Valgus- 0 Degrees Test Results -ve B Anterior Draw Test Results -ve B Apley's Compression Test Results -ve B Apprehension Test Test Results +ve R Comments slight discomfort with lateral glide of patella Momo's Sign Test Results +VE R Toyin Test Test Results -ve PT-OP-M Strength Start: 01/17/21 16:24 Freq: Status: Active Protocol: Document 01/17/21 16:25 HH (Rec: 01/17/21 16:53 [email or web address]) Hip Strength Hip Manual Muscle Testing Right Flexion (L2) 4 Good Extension (S1) 4+ Good+ Abduction 4 Good External Rotation 4 Good Internal Rotation 4+ Good+ Left Flexion (L2) 5 Normal Extension (S1) 5 Normal Abduction 5 Normal Adduction 5 Normal External Rotation 4+ Good+ Internal Rotation 4+ Good+ Knee Strength Knee Manual Muscle Testing Right Flexion (S2) 5 Normal Extension (L3) 5 Normal Left Flexion (S2) 5 Normal Extension (L3) 5 Normal PT-OP-Q Treatments Start: 01/17/21 16:24 Freq: Status: Active Protocol: Document 02/11/21 15:13 (Rec: 02/11/21 16:02 [id number]) Cardio Equipment Bicycle (Upright) Duration (Minutes) 8 Resistance 5 Gym Equipment Shuttle Recovery SL jump Resistance 50 Shuttle Recovery Platform Stable Reps/Time cues on soft landing Therapeutic Exercises Standing Exercises plank Equipment Used on therapy ball Reps/Minutes 15 s x 5 wall squat Side bilateral Equipment Used against red ball Reps/Minutes 10s x 5 SL hop Standing Exercise Name land on blue foam, fwd and lateral Side bilateral Equipment Used blue foam Reps/Minutes 10 x 2 lunges Standing Exercise Name in place Reps/Minutes 8 x 2 runner squat Side bilateral Reps/Minutes 5 mins Comments difficulty standing on RLE but improved after [address] way toe tap Standing Exercise Name cone tap, fwd, lateral, bwk Side bilateral Reps/Minutes 5 mins SLS Standing Exercise Name blue foam, then black foam Side bilateral Reps/Minutes 20 x 6 Comments EC on floor, EO for foam pade monster walk Equipment Used red band Reps/Minutes 20 ft x6 PT-OP-T Assessment and Plan Start: 01/17/21 16:24 Freq: Status: Active Protocol: Document 02/11/21 15:13 (Rec: 02/11/21 16:02 [id number]) Physical Therapy Assessment Goals single leg strength Impairment limited R single leg strength Short Term Goal (STG) pt will be able to stand on RLE without use of UEs to balance for 60 seconds STG Duration 4 weeks Collar Stay Fuser Tender Goal (LTG) pt will show improve single leg balance and strength to be able to complete 5 single leg squat from a 22 table, which allows him to have good eccentric control during stance phase while running LTG Duration 8 weeks hip ROM Impairment limited R hip ER Short Term Goal (STG) pt will show improved R hip ER by 10 degrees to prevent knee valgus during running and single leg squat STG Duration 6 weeks running Impairment pt is unable to run on concrete at this point Short Term Goal (STG) pt will be able to run on concrete road 1-2 miles 3x per week without increase in discomfort STG Duration 4 weeks Assisted Goal (LTG) pt will be able to run on concrete road 3-5 miles 3x per week without increase in discomfort LTG Duration 8 weeks Assessment Summary Assessment Pt's SL balance, strength, landing techniques have shown good progress and he stated he feels symmetrical with his performance. Pt will attempt to run outdoor for the next few weeks and I will reassess him next visit 03/08/21 Physical Therapy Plan Frequency and Duration Frequency of Treatment 1x/Week Duration of Treatment 8 weeks Plan of Care Start Date 01/17/21 Plan of Care End Date 03/18/21 Therapeutic Interventions Therapeutic Interventions Aquatic Therapy,Balance Training,Gait Training,Home Exercise Program,Joint Mobilizations,Manual Therapy, Neuromuscular Re-education, Patient/Caregiver Education, Self-Care/Home Management,Soft Tissue Mobilization,Taping, Therapeutic Activities, Therapeutic Exercises Modalities Biofeedback,Cold Pack/Ice Massage,Electric Stimulation, Hot Packs,Infrared Therapy, Iontophoresis,Ultrasound Next Visit Focus/Plan Next Note Type Treatment Note Next Visit Plan running analysis R hip ER hip stabilizer strnegthening hip abductors strengthening SL balance leg press
--- NOTE | 2021-05-02 13:30 | PT.OPDS ---
Current Diagnoses Other chronic pain (02/11/21) Pain in right knee (02/11/21) Visit Care Team Role Provider Type Perry Aranda DO Attending Provider Physician Family Provider Primary Care Provider Referring Provider Specialty: Family Practice Address: [address] [place] [address], [facility] Email: [email or web address] Visit Number Visit Number Discharge Summary PT-OP-T Assessment and Plan Start: 01/17/21 16:24 Freq: Status: Active Protocol: Document 05/02/21 13:28 HH (Rec: 05/02/21 13:30 HH [email or web address]) Physical Therapy Plan Discharge Physical Therapy Discharge Reasons No Longer Attending PT Discharge Comments Per EMR, pt has been progressing well. Attempted to contact him via phone multiple times but no response . DC from PT today.
== END 2021-05-02 14:49 | disposition home or self-care (01) ==
LOC: PHYS 15:15
PROVIDERS: Family Provider Family Medicine; PCP Family Medicine; Referring Provider Family Medicine; Visit Provider Family Medicine
DX: M25.561 Pain in right knee (principal); G89.29 Other chronic pain
CPT/HCPCS: 97110; 97140; 97161

== ENCOUNTER → 2022-01-24 07:55 | Outpatient (CLI) | payer OTHER, SELFPAY ==
[2022-01-24 08:27] LABS: Add Manual Diff / Slide Review NO; Basophils Absolute Auto 0 /uL (0-100); Basophils Percent Auto 0.7 % (0-2); Eosinophils Absolute Auto 0 /uL (0-450); Eosinophils Percent Auto 0.6 % (2-4); Hemoglobin 14.9 g/dL (13.5-17.5); Lymphocytes Absolute Auto 600 /uL (1100-4500); Lymphocytes Percent Auto 8.6 % (25-40); Mean Corpuscular HGB Conc 35.4 % (30-36); Mean Corpuscular Hemoglobin 30.9 PG (26-34); Mean Corpuscular Volume 87.3 fL (80-100); Monocytes Absolute Auto 500 /uL (0-900); Monocytes Percent Auto 7.1 % (3-14); Neutrophils Absolute Auto 6100 /uL (1500-7000); Platelet Count 200 X10^3/uL (150-400); Red Blood Cell Count 4.81 X10^6/uL (4.5-5.9); Red Cell Distribution Width 12.4 % (11.6-14.8); White Blood Cell Count 7.4 X10^3/uL (4.5-11.0)
[2022-01-24 08:45] LABS: Alanine Aminotransferase 58 IU/L (<50); Albumin 4.6 g/dL (3.5-5.0); Albumin Globulin Ratio 1.8 (1.0-2.8); Alkaline Phosphatase 78 U/L (38-126); Aspartate Aminotransferase 58 IU/L (17-59); Blood Urea Nitrogen 12 mg/dL (9-20); Carbon Dioxide 29 mmol/L (22-32); Chloride 103 mmol/L (98-107); Cholesterol 187 mg/dL (140-199); Estimated Glomerular Filt Rate > 60 mL/min (>60); Globulin 2.6 g/dL (1.7-4.1); Glucose 114 mg/dL (70-100); HDL Cholesterol 48 mg/dL (40-60); HEMOLYSIS < 15 (0-50); LDL Cholesterol Calculated 128 mg/dL (<100); Potassium 4.1 mmol/L (3.4-5.1); Sodium 137 mmol/L (137-145); Total Protein 7.2 g/dL (6.3-8.2); Triglycerides 56 mg/dL (35-150)
== END ==
PROVIDERS: Family Provider Family Medicine; PCP Family Medicine; Referring Provider Family Medicine; Visit Provider Family Medicine
DX: R17 Unspecified jaundice (principal); R79.89 Other specified abnormal findings of blood chemistry; Z13.220 Encounter for screening for lipoid disorders; E03.9 Hypothyroidism, unspecified
CPT/HCPCS: 36415; 80053; 80061; 85025

== ENCOUNTER → 2023-02-16 07:30 | Outpatient (CLI) | payer OTHER, SELFPAY ==
[2023-02-16 09:16] LABS: Add Manual Diff / Slide Review NO; Basophils Absolute Auto 100 /uL (0-100); Basophils Percent Auto 1.5 % (0-2); Eosinophils Absolute Auto 100 /uL (0-450); Eosinophils Percent Auto 2.5 % (2-4); Hematocrit 43.4 % (41-53); Hemoglobin 15.1 g/dL (13.5-17.5); Lymphocytes Absolute Auto 1200 /uL (1100-4500); Mean Corpuscular HGB Conc 34.9 % (30-36); Mean Corpuscular Hemoglobin 31.4 PG (26-34); Mean Corpuscular Volume 90.1 fL (80-100); Monocytes Absolute Auto 300 /uL (0-900); Monocytes Percent Auto 8.9 % (3-14); Neutrophils Absolute Auto 2000 /uL (1500-7000); Neutrophils Percent Auto 54.1 % (50-75); Platelet Count 218 X10^3/uL (150-400); Red Blood Cell Count 4.81 X10^6/uL (4.5-5.9); Red Cell Distribution Width 12.8 % (11.6-14.8); White Blood Cell Count 3.8 X10^3/uL (4.5-11.0)
[2023-02-16 09:35] LABS: Alanine Aminotransferase 33 IU/L (<50); Albumin 4.6 g/dL (3.5-5.0); Albumin Globulin Ratio 1.6 (1.0-2.8); Alkaline Phosphatase 75 U/L (38-126); Aspartate Aminotransferase 31 IU/L (17-59); BUN Creatinine Ratio 21.1 (6-22); Bilirubin Total 2.1 mg/dL (0.2-1.3); Blood Urea Nitrogen 16 mg/dL (9-20); Calcium 9.8 mg/dL (8.4-10.2); Carbon Dioxide 29 mmol/L (22-32); Chloride 100 mmol/L (98-107); Cholesterol 228 mg/dL (140-199); Estimated Glomerular Filt Rate > 60 mL/min (>60); Globulin 2.9 g/dL (1.7-4.1); Glucose 103 mg/dL (70-100); HDL Cholesterol 68 mg/dL (40-60); HEMOLYSIS 16 (0-50); LDL Cholesterol Calculated 145 mg/dL (<100); Potassium 4.1 mmol/L (3.4-5.1); Sodium 138 mmol/L (137-145); Total Protein 7.5 g/dL (6.3-8.2); Triglycerides 76 mg/dL (35-150)
[2023-02-16 10:02] LABS: TSH w/ Reflex to FT4 1.88 uIU/mL (0.47-4.68)
[2023-02-17 07:14] LABS: Labcorp Hemoglobin (Hb) A1c 5.2 % (4.8-5.6)
[2023-02-21 17:40] LABS: Percent Free Testosterone 2.15 % (1.50-4.20); Testosterone Free 10.66 ng/dL (5.00-21.00)
== END ==
PROVIDERS: Family Provider Family Medicine; PCP Family Medicine; Referring Provider Family Medicine; Visit Provider Family Medicine
DX: R79.89 Other specified abnormal findings of blood chemistry (principal); R17 Unspecified jaundice; Z00.00 Encounter for general adult medical examination without abnormal findings; Z13.1 Encounter for screening for diabetes mellitus; Z13.6 Encounter for screening for cardiovascular disorders; Z13.9 Encounter for screening, unspecified
CPT/HCPCS: 36415; 80053; 80061; 82248; 83036; 84402; 84403; 84443; 85025

== ENCOUNTER → 2024-04-21 07:24 | Outpatient (CLI) | payer OTHER, SELFPAY ==
[2024-04-21 07:43] LABS: Add Manual Diff / Slide Review NO; Basophils Absolute Auto 100 /uL (0-100); Basophils Percent Auto 1.2 % (0-2); Eosinophils Absolute Auto 200 /uL (0-450); Eosinophils Percent Auto 4.8 % (2-4); Hematocrit 43.7 % (41-53); Hemoglobin 15.1 g/dL (13.5-17.5); Lymphocytes Absolute Auto 1600 /uL (1100-4500); Lymphocytes Percent Auto 36.7 % (25-40); Mean Corpuscular HGB Conc 34.4 % (30-36); Mean Corpuscular Hemoglobin 30.8 PG (26-34); Mean Corpuscular Volume 89.5 fL (80-100); Monocytes Absolute Auto 400 /uL (0-900); Monocytes Percent Auto 8.7 % (3-14); Neutrophils Absolute Auto 2100 /uL (1500-7000); Neutrophils Percent Auto 48.6 % (50-75); Platelet Count 200 X10^3/uL (150-400); Red Blood Cell Count 4.88 X10^6/uL (4.5-5.9); Red Cell Distribution Width 12.4 % (11.6-14.8); White Blood Cell Count 4.4 X10^3/uL (4.5-11.0)
[2024-04-21 08:03] LABS: Hemoglobin A1C% w Est Avg Glu 5.1 % (4.0-6.0)
[2024-04-21 08:09] LABS: Alanine Aminotransferase 34 IU/L (<50); Albumin 4.5 g/dL (3.5-5.0); Alkaline Phosphatase 70 U/L (38-126); Aspartate Aminotransferase 39 IU/L (17-59); BUN Creatinine Ratio 21.6 (6-22); Bilirubin Total 1.7 mg/dL (0.2-1.3); Blood Urea Nitrogen 19 mg/dL (9-20); Calcium 9.6 mg/dL (8.4-10.2); Carbon Dioxide 24 mmol/L (22-32); Chloride 105 mmol/L (98-107); Cholesterol 179 mg/dL (140-199); Estimated Glomerular Filt Rate > 60 mL/min (>60); Globulin 2.2 g/dL (1.7-4.1); Glucose 81 mg/dL (70-100); HDL Cholesterol 75 mg/dL (40-60); HEMOLYSIS < 15 (0-50); LDL Cholesterol Calculated 89 mg/dL (<100); Potassium 4.3 mmol/L (3.4-5.1); Sodium 136 mmol/L (137-145); Total Protein 6.7 g/dL (6.3-8.2); Triglycerides 75 mg/dL (35-150)
[2024-04-21 08:37] LABS: TSH w/ Reflex to FT4 1.82 uIU/mL (0.47-4.68)
== END ==
PROVIDERS: Family Provider Family Medicine; PCP Family Medicine; Referring Provider Family Medicine; Visit Provider Family Medicine
DX: E78.00 Pure hypercholesterolemia, unspecified (principal); R73.03 Prediabetes; Z79.899 Other long term (current) drug therapy; I10 Essential (primary) hypertension; E03.9 Hypothyroidism, unspecified
CPT/HCPCS: 36415; 80053; 80061; 83036; 84443; 85025

== ENCOUNTER → 2025-06-02 09:12 | Outpatient (CLI) | payer OTHER, SELFPAY ==
[2025-06-02 09:56] LABS: Add Manual Diff / Slide Review NO; Hematocrit 43.9 % (41-53); Hemoglobin 15.3 g/dL (13.5-17.5); Lymphocytes Absolute Auto 1200 /uL (1100-4500); Mean Corpuscular HGB Conc 34.8 % (30-36); Mean Corpuscular Hemoglobin 30.9 PG (26-34); Mean Corpuscular Volume 88.7 fL (80-100); Platelet Count 213 X10^3/uL (150-400)
[2025-06-02 10:11] LABS: Hemoglobin A1C% w Est Avg Glu 5.3 % (4.0-6.0)
[2025-06-02 10:55] LABS: Alanine Aminotransferase 68 IU/L (<50); Albumin 4.6 g/dL (3.5-5.0); Albumin Globulin Ratio 1.7 (1.0-2.8); Alkaline Phosphatase 60 U/L (38-126); Blood Urea Nitrogen 15 mg/dL (9-20); Calcium 10.1 mg/dL (8.4-10.2); Carbon Dioxide 29 mmol/L (22-32); Chloride 102 mmol/L (98-107); Cholesterol 171 mg/dL (140-199); Estimated Glomerular Filt Rate > 60 mL/min (>60); Globulin 2.7 g/dL (1.7-4.1); Glucose 105 mg/dL (70-99); HDL Cholesterol 90 mg/dL (40-60); HEMOLYSIS < 15 (0-50); Potassium 4.1 mmol/L (3.4-5.1); Sodium 138 mmol/L (137-145); Total Protein 7.3 g/dL (6.3-8.2); Triglycerides 50 mg/dL (35-150); Uric Acid 4.8 mg/dL (3.5-8.5)
[2025-06-02 10:58] LABS: TSH w/ Reflex to FT4 1.66 uIU/mL (0.47-4.68)
[2025-06-04 11:13] LABS: Insulin Level Total 3.1 uIU/mL (2.6-24.9)
== END ==
PROVIDERS: Family Provider Family Medicine; PCP Family Medicine; Referring Provider Family Medicine; Visit Provider Family Medicine
DX: N52.01 Erectile dysfunction due to arterial insufficiency (principal); E78.00 Pure hypercholesterolemia, unspecified; R73.03 Prediabetes; E03.9 Hypothyroidism, unspecified; R79.89 Other specified abnormal findings of blood chemistry; I10 Essential (primary) hypertension; Z86.0100 Personal history of colon polyps, unspecified
CPT/HCPCS: 36415; 80053; 80061; 83036; 83525; 84402; 84403; 84443; 84550; 85025

== ENCOUNTER → 2025-06-16 08:40 | Outpatient (CLI) | payer OTHER, SELFPAY ==
[2025-06-16 10:24] LABS: Add Manual Diff / Slide Review NO; Hematocrit 44.4 % (41-53); Hemoglobin 15.3 g/dL (13.5-17.5); Lymphocytes Absolute Auto 1100 /uL (1100-4500); Mean Corpuscular HGB Conc 34.5 % (30-36); Mean Corpuscular Hemoglobin 30.6 PG (26-34); Mean Corpuscular Volume 88.6 fL (80-100); Platelet Count 213 X10^3/uL (150-400)
[2025-06-16 10:44] LABS: Alanine Aminotransferase 25 IU/L (<50); Albumin 4.5 g/dL (3.5-5.0); Albumin Globulin Ratio 1.9 (1.0-2.8); Alkaline Phosphatase 61 U/L (38-126); Blood Urea Nitrogen 17 mg/dL (9-20); Calcium 9.8 mg/dL (8.4-10.2); Carbon Dioxide 28 mmol/L (22-32); Chloride 101 mmol/L (98-107); Estimated Glomerular Filt Rate > 60 mL/min (>60); Globulin 2.4 g/dL (1.7-4.1); Glucose 107 mg/dL (70-99); Potassium 4.8 mmol/L (3.4-5.1); Sodium 135 mmol/L (137-145); Total Protein 6.9 g/dL (6.3-8.2)
[2025-06-16 11:00] LABS: HEMOLYSIS 33 (0-50)
[2025-06-16 11:16] LABS: TSH w/ Reflex to FT4 1.29 uIU/mL (0.47-4.68)
[2025-06-16 11:30] LABS: Hemoglobin A1C% w Est Avg Glu 5.3 % (4.0-6.0)
[2025-06-16 11:35] LABS: Hep C Virus Ab w/Reflex Quant NEGATIVE s/c (NEGATIVE)
== END ==
PROVIDERS: Family Provider Family Medicine; PCP Family Medicine; Referring Provider Family Medicine; Visit Provider Family Medicine
DX: E78.00 Pure hypercholesterolemia, unspecified (principal); R73.03 Prediabetes; E03.9 Hypothyroidism, unspecified; R79.89 Other specified abnormal findings of blood chemistry
CPT/HCPCS: 36415; 80053; 82248; 83036; 84443; 85025; 86803